=== PATIENT | female | born 1985 | race Caucasian/White ===

== ENCOUNTER 2024-03-24 14:43 | Outpatient (CLI) | payer BC | END 2024-03-24 14:44 | disposition home or self-care (01) | LOC: ULT 14:43 | PROVIDERS: ATTEND Student in an Organized Health Care Education/Training Program | DX: R14.0 Abdominal distension (gaseous) (principal); Z90.710 Acquired absence of both cervix and uterus | CPT/HCPCS: 76856 ==

== ENCOUNTER 2024-04-07 14:18 | Outpatient (CLI) | payer BC | END 2024-04-07 14:19 | disposition home or self-care (01) | LOC: CT 14:18 | PROVIDERS: ATTEND Student in an Organized Health Care Education/Training Program | DX: E27.8 Other specified disorders of adrenal gland (principal) | CPT/HCPCS: 74178 ==

== ENCOUNTER 2024-11-04 10:30 | Outpatient (CLI) | payer BC | END 2024-11-04 10:31 | disposition home or self-care (01) | LOC: BICULT 10:30 | PROVIDERS: ATTEND Student in an Organized Health Care Education/Training Program | DX: R10.31 Right lower quadrant pain (principal) | CPT/HCPCS: 76705 ==